=== PATIENT | female | born 1990 | race Caucasian/White ===

== ENCOUNTER → 2019-07-29 | Outpatient (CLI) | payer BC ==
--- NOTE | 2019-07-29 11:33 | CONS ---
CONSULTATION DATE OF SERVICE: 07/29/2019 A 29-year-old lady who has been evaluated in the Sleep Center for possible obstructive sleep apnea-hypopnea syndrome. HISTORY OF PRESENT ILLNESS/SLEEP-WAKE EVALUATION: Patient usual sleep schedule from 1 am until 9 to 10 am, basically 7 days a week. She does have problem with falling asleep, although no TV in bedroom. She usually sleeps on the side of stomach position. She has loud snoring and witnessed episodes of stopped breathing during the sleep. She grinds her teeth with episodes of heartburn, sleep talking. She wakes up from sleep up to 5 times with up to 2 episodes of nocturia. She tosses and turns all night. Patient may start seeing dreams right while falling asleep and also may see dreams during nap, possibly hypnagogic hallucinations. No history of sleep paralysis or cataplexy. During the day, the patient may feel sleepiness. [place] Sleepiness Scale is 8. She may take up to one nap around noon, but not every day. History of sleepwalking in childhood. PAST MEDICAL HISTORY: Positive for depression. History of leukocytosis in 2009 up to 18,000 with negative evaluation including bone biopsy. ALLERGY: Asthma. PAST SURGICAL HISTORY: None. CURRENT MEDICATIONS: Effexor, Zanaflex, ibuprofen, allergy relief, metformin, SOCIAL HISTORY: Negative for smoking or using alcohol. FAMILY HISTORY: Hypertension, arthritis, sinus problems, snoring, pneumoniae, headaches, diabetes, acid reflux. REVIEW OF SYSTEMS: Multiple awakenings from sleep, movements during the night, feeling tiredness and sleepiness during the day. PHYSICAL EXAM: lady without distress, BP 139/88, HR 78, RR 16, height 5, 5, weight 274.4, temperature 97.8, oxygen saturation at room air 98%. Body mass index 45.5. OROPHARYNX: Extremely low position of soft palate. Mallampati 4. Wide neck, 18 inches in circumference. ABDOMEN: Obese. NECK: Supple, no JVD. Thyroid is not palpable. LUNGS: Clear to percussion and to auscultation. Good air exchange. No wheezing or rhonchi. HEART: S1, S2 regular. No murmurs, gallops, or rubs. EXTREMITIES: No clubbing or cyanosis. MEAL MILLER: Awake, alert, and oriented X3. Cranial nerves 2 to 7 intact. There is no fasciculation or atrophy. noted. No focal deficits observed. IMPRESSION: 1. Loud snoring, witnessed episodes of stopped breathing during the sleep, extremely low position of soft palate, Mallampati 4, multiple awakenings from sleep, wide neck. Obstructive sleep apnea-hypopnea syndrome. 2. Significant amount of movements during the sleep. Rule out periodic limb movements. 3. Obesity; body mass index 45.5. 4. History of sleepwalking in childhood. 5. Leukocytosis up to 18,000 cells per mL since 2009 with normal results of a bone biopsy. 6. Depression. 7. Allergies. 8. History of asthma in childhood. 9. Episodes of muscle cramps including muscle cramps in the back. PLAN: 1. Polysomnography for evaluation of patient's breathing during sleep. 2. CPAP/BiPAP titration if sleep study confirms obstructive sleep apnea-hypopnea syndrome. 3. Preferable position during sleep on the side. 4. No driving if patient feels any sleepiness. 5. I will see patient for follow up visit to explain results of testing and following plan. Thank you very much for referring this patient for consultation. Sincerely, Dann Saldana MD, PhD, FAASM Diplomat of [employer] Sports Teacher of [facility] [place] MMODL / LILLYN: [id number] /
== END | disposition home or self-care (01) ==
LOC: SLEEP 10:32
PROVIDERS: ATTEND Internal Medicine
DX: G47.33 Obstructive sleep apnea (adult) (pediatric) (principal); G47.61 Periodic limb movement disorder; E66.9 Obesity, unspecified; R25.2 Cramp and spasm; T78.40XA Allergy, unspecified, initial encounter; Z87.09 Personal history of other diseases of the respiratory system; Z68.42 Body mass index [BMI] 45.0-49.9, adult; Z79.84 Long term (current) use of oral hypoglycemic drugs; Z79.899 Other long term (current) drug therapy; Z79.1 Long term (current) use of non-steroidal anti-inflammatories (NSAID)
CPT/HCPCS: 99201

== ENCOUNTER → 2020-05-11 | Outpatient (CLI) | payer BC ==
--- NOTE | 2020-05-11 12:22 | SFUN ---
SLEEP CENTER FOLLOW UP NOTE DATE OF SERVICE: 05/11/2020 A 30-year-old lady who has been followed in the Sleep Center for treatment of obstructive sleep apnea-hypopnea syndrome. This is her first visit after she was started on treatment with CPAP. While using CPAP equipment, she feels better. She sleeps in bed and feels better during the day. Still unsure on [place] Sleepiness Scale with increased number today is 14. I checked her CPAP unit, is in automatic regimen range of the pressure is 5 to 20 with average pressure 14.2. For the last 25 nights, patient used it every night, 14 nights for more than 4 hours, average 3.8 hours per night. Leak is 38 L/minute, which is high, but breathing on full control. Apnea-hypopnea index of 0.8. MEDICATIONS: Effexor, Zanaflex, ibuprofen, metformin. PHYSICAL EXAM: Patient in no distress, BP 145/87, HR 92, RR 15, weight 276.6, temperature 96.7, oxygen saturation at room air 98%. OROPHARYNX: Extremely low position of soft palate. Mallampati 4. ABDOMEN: Obese. NECK: Supple, no JVD. Thyroid is not palpable. LUNGS: Clear to percussion and to auscultation. Good air exchange. No wheezing or rhonchi. HEART: S1, S2 regular. No murmurs, gallops, or rubs. EXTREMITIES: No clubbing or cyanosis. DISCHARGE SPECIALIST: Awake, alert, and oriented X3. Cranial nerves 2 to 7 intact. There is no fasciculation or atrophy. noted. No focal deficits observed. IMPRESSION: 1. Obstructive sleep apnea-hypopnea syndrome, normal respiration on CPAP. Patient benefitting from treatment. 2. Obesity. 3. History of sleepwalking in childhood. 4. History of leukocytosis. 5. Depression. 6. Allergies. 7. History of asthma in childhood. 8. History of episodes of muscle cramps. PLAN: 1. Patient will continue to use PAP equipment every night for the whole night. 2. Sleep hygiene with regular time in bed for at least 7-1/2 to 8 hours. 3. Precautions related to driving. No driving if feeling sleepiness. 4. I will maintain all necessary prescription for PAP supplies including mask, tube, filters. 5. Watching weight. 6. No driving if feeling sleepiness. 7. Followup visit in 4 months or earlier if patient has any problems. 8. If patient will continue to have symptoms of significant excessive daytime sleepiness, we may consider to proceed with multiple sleep latency test. Thank you very much for allowing me to participate in the management of your patient. Sincerely, Dann Saldana MD, PhD, FAASM Diplomat of [employer] Tester Operator Helper of [facility] [place] MMODL / IJN: [id number] /
== END | disposition home or self-care (01) ==
LOC: SLEEP 11:02
PROVIDERS: ATTEND Internal Medicine
DX: G47.33 Obstructive sleep apnea (adult) (pediatric) (principal); E66.9 Obesity, unspecified; F32.9 Major depressive disorder, single episode, unspecified; T78.40XA Allergy, unspecified, initial encounter; Z87.09 Personal history of other diseases of the respiratory system; Z99.89 Dependence on other enabling machines and devices; Z79.891 Long term (current) use of opiate analgesic; Z79.899 Other long term (current) drug therapy; Z86.2 Personal history of diseases of the blood and blood-forming organs and certain disorders involving the immune mechanism

== ENCOUNTER → 2020-09-27 | Outpatient (CLI) | payer BC ==
--- NOTE | 2020-09-27 22:41 | SFUN ---
SLEEP CENTER FOLLOW UP NOTE DATE OF SERVICE: 09/27/2020 This 30-year-old lady has been followed in Sleep Center for treatment of obstructive sleep apnea-hypopnea syndrome. Recently the patient had a home sleep apnea test which showed mild obstructive sleep apnea, but the home sleep apnea test results could underestimate severity. I discussed results of the sleep study with the patient in detail. She was started on treatment with CPAP. With CPAP she feels that she sleeps better and feels better during the day than without CPAP. Recently the patient developed some problems related to the pressure and feels that the pressure is too high for her. Today is her first visit after she recently automatic CPAP equipment. [place] Sleepiness Scale today is increased to 13. I checked her CPAP unit. Range of the pressure is 5 to 20 with average pressure 16.2. For the last month the patient used it only for a few days because she had problems with the pressure. Apnea-hypopnea index is 1.5, which is perfect. There was no RAMP on the machine; RAMP was off. EPR was off. MEDICATIONS: 1. Trazodone once a day at nighttime. 2. Metformin twice a day. 3. Effexor once a day. PHYSICAL EXAMINATION: GENERAL: A pleasant patient in no distress. VITAL SIGNS: BP 134/80, HR 80, RR 16, height 5 feet 5 inches, weight 276.6, temperature 98.5, body mass index 45.9, oxygen saturation at room air 97%. HEENT: PERRLA, EOMI. Evaluation of oropharynx showed tongue protrudes midline. Extremely low position of soft palate. Mallampati IV. NECK: Supple. No JVD. Thyroid is not palpable. LUNGS: Clear to percussion and to auscultation. Good air exchange. No wheezing or rhonchi. HEART: S1, S2 regular. No murmurs, gallops or rubs. ABDOMEN: Obese. EXTREMITIES: No clubbing or cyanosis. PCI SECURITY CONSULTANT: Awake, alert, and oriented X3. Cranial nerves 2 to 7 intact. There is no fasciculation or atrophy. noted. No focal deficits observed. IMPRESSION: 1. Mild obstructive sleep apnea-hypopnea syndrome. The patient feels better while using her CPAP equipment. 2. The patient has some problems related to the pressure. EPR on the machine is zero. RAMP is zero. 3. Obesity. BMI 45.9. 4. Depression. 5. History of sleepwalking in childhood. 6. History of leukocytosis. 7. Allergies. 8. History of asthma in childhood. 9. History of episodes of muscle cramps. PLAN: 1. I changed the regimen in the machine to automatic regimen, 5 to 16 cm of water and subsequently decreased maximal pressure to 16. I increased EPR from zero to 3 cm of water. 2. I changed RAMP to 30 minutes, starting pressure 6 cm of water. 3. Patient will continue to use PAP equipment every night for the whole night. 4. Sleep hygiene with regular time in bed for at least 7-1/2 to 8 hours. 5. Precautions related to driving. No driving if feeling sleepiness. 6. I will maintain all necessary prescription for PAP supplies including mask, tube, filters. 7. Watching weight. 8. Follow-up visit in 6 months or earlier if patient has any problems. Thank you very much for allowing me to participate in the management of your patient. Sincerely, Dann Saldana MD, PhD, FAASM Diplomat of [employer] Game Moderator of [facility] [place] MMODL / LILLYN: [id number] /
== END | disposition home or self-care (01) ==
LOC: SLEEP 16:08
PROVIDERS: ATTEND Internal Medicine
DX: G47.33 Obstructive sleep apnea (adult) (pediatric) (principal); E66.9 Obesity, unspecified; Z99.89 Dependence on other enabling machines and devices; Z79.84 Long term (current) use of oral hypoglycemic drugs; Z79.899 Other long term (current) drug therapy; Z68.42 Body mass index [BMI] 45.0-49.9, adult; Z86.79 Personal history of other diseases of the circulatory system; Z87.09 Personal history of other diseases of the respiratory system; Z87.39 Personal history of other diseases of the musculoskeletal system and connective tissue; Z86.59 Personal history of other mental and behavioral disorders